=== PATIENT | female | born 1985 | race Caucasian/White ===

== ENCOUNTER 2019-10-01 07:56 | Outpatient (CLI) | payer BC ==
--- NOTE | 2019-10-01 09:01 | ULT ---
EXAM: OB ultrasound COMPARISON: None HISTORY: female. Evaluate size, dates, and anatomy. TECHNIQUE: Multiplanar grayscale and color Doppler transabdominal sonographic images are obtained. FINDINGS: There is a single intrauterine gestation in cephalic presentation. Cardiac Doppler demonstr ates heart tones with a heart rate of 139 beats per minute. The placenta is located anteriorly without evidence of placenta previa. There is a normal amount of amniotic fluid with an am niotic fluid index of 12.42 centimeters. The cervical length based on transabdominal imaging measures 3.51 centimeters. biometry measurements: BPD 4.77 cm -- 20 weeks 3 days HC 17.36 cm -- 20 weeks AC 14.29 cm -- 19 weeks 5 days FL 3.12 cm -- 19 weeks 5 days The estimated gestational age by ultrasound is 20 weeks with an MARAL on02/18/2020. Gestational age by th e last menstrual period is 20 weeks. The estimated weight by ultrasound is 308 g (11 ounces). This represents 30 percentile for feta l weight. A 4 chambered heart is visualized. The cerebellum, visualized portions of the spine, kidneys, u rinary bladder, and cord insertion demonstrate a normal sonographic appearance. A three-vessel cord is not visualized, but there is flow on either side of the urinary bladder sugges ting a three-vessel cord.. No anomalies are seen. IMPRESSION: 1. Single intrauterine gestation in cephalic presentation with heart tones documented. Estimat ed gestational age by ultrasound is 20 weeks. 2. Estimated weight is 308 g (11 ounces). 3. Amniotic fluid index is 12.42 centimeters.
== END 2019-10-01 07:57 | disposition home or self-care (01) ==
LOC: BICULT 07:56
DX: Z34.92 Encounter for supervision of normal pregnancy, unspecified, second trimester (principal); Z3A.20 20 weeks gestation of pregnancy
CPT/HCPCS: 76805